=== PATIENT | female | born 1990 | race Two or more races ===

== ENCOUNTER 2022-05-05 11:43 | Observation (INO) | payer OTHER ==
[~2022-05-05] VITALS: Ht 162.6 cm; Wt 91.6 kg
[2022-05-05] MEDS ORDERED: BETAMETHASONE ACET (30mg/5ml) 5ml Vial 6mg/ml IM ONE (12:45)
[2022-05-05 13:16] LABS: Urine Bacteria NONE SEEN /hpf (None Seen); Urine Blood Negative /uL (Negative); Urine Mucus FEW (None Seen); Urine Specific Gravity 1.017 (1.001-1.035); Urine WBC 6 /hpf (0 - 5)
[2022-05-05 13:34] LABS: Basophils # (auto) 0 10 ^3/uL (0-0.2); Basophils % (auto) 0.2 % (0.0-2.0); Eosinophils # (auto) 0.1 10 ^3/uL (0-0.8); Eosinophils % (auto) 0.7 % (0.0-7.0); Hematocrit 40.6 % (36.0-46.0); Hemoglobin 13.4 g/dL (12.2-16.2); Lymphocytes % (auto) 11.1 % (10.0-50.0); Mean Corpuscular Hemoglobin 28.1 pg (28.0-32.0); Mean Corpuscular Hgb Conc. 32.9 g/dL (32.0-36.0); Mean Corpuscular Volume 85.4 fL (80.0-100.0); Monocytes # (auto) 0.4 10 ^3/uL (0-1.3); Monocytes % (auto) 4.5 % (0.0-12.0); Neutrophils # (auto) 7.3 10 ^3/uL (1.6-8.6); Neutrophils % (auto) 83.5 % (37.0-80.0); Red Blood Cells 4.75 10^6/uL (4.0-5.20); Red Cell Distribution Width 13.6 % (11.8-14.3); White Blood Cell 8.8 10^3/uL (4.4-10.8)
[2022-05-05 13:57] LABS: INR 0.91 (0.9-1.15); Partial Thromboplastin Time 26.8 sec (24.6-33.4)
[2022-05-05 14:13] LABS: Albumin 2.8 g/dL (3.4-5.0); BUN/Creatinine Ratio 11.8; Calcium 8.7 mg/dL (8.5-10.1); Potassium 3.6 mmol/L (3.5-5.1); Uric Acid 4.7 mg/dL (2.6-6.0)
[2022-05-05 14:30] LABS: Bilirubin, Total 0.3 mg/dL (0.2-1.0); Total Protein 6.3 g/dL (6.4-8.2)
[2022-05-05] MEDS ORDERED: PREN-96 PO (15:33)
== END 2022-05-05 15:52 | disposition home or self-care (01) ==
LOC: LDRP 11:43 → UNDOADMOB 11:43 → LDRP 12:12
PROVIDERS: ADMIT Obstetrics & Gynecology; ATTEND Obstetrics & Gynecology
DX: O13.3 Gestational [pregnancy-induced] hypertension without significant proteinuria, third trimester (principal); Z20.822 Contact with and (suspected) exposure to COVID-19; O36.8930 Maternal care for other specified fetal problems, third trimester, not applicable or unspecified; Z3A.32 32 weeks gestation of pregnancy; Z79.899 Other long term (current) drug therapy
CPT/HCPCS: 36415; 59025; 76818; 80053; 81001; 81002; 84550; 85025; 85610; 85730; 87426; 94760; 96372; G0378; J0702

== ENCOUNTER 2022-05-06 17:15 | Observation (INO) | payer OTHER ==
[~2022-05-06] VITALS: Ht 162.6 cm; Wt 91.6 kg
[~2022-05-06 17:15] MED LIST: PREN-96 PO
[2022-05-06] MEDS ORDERED: BETAMETHASONE ACET (30mg/5ml) 5ml Vial 6mg/ml IM ONE (19:00)
[2022-05-06 19:02] LABS: Protein, Urine 10.4 mg/dL (0.0-11.9)
== END 2022-05-06 19:42 | disposition home or self-care (01) ==
LOC: LDRP 17:15
PROVIDERS: ADMIT Obstetrics & Gynecology; ATTEND Obstetrics & Gynecology
DX: O13.3 Gestational [pregnancy-induced] hypertension without significant proteinuria, third trimester (principal); O99.513 Diseases of the respiratory system complicating pregnancy, third trimester; J02.9 Acute pharyngitis, unspecified; O26.893 Other specified pregnancy related conditions, third trimester; M79.10 Myalgia, unspecified site; Z3A.32 32 weeks gestation of pregnancy
CPT/HCPCS: 59025; 81002; 84156; 94760; 96372; G0378; J0702

== ENCOUNTER 2022-05-09 08:25 | Observation (INO) | payer OTHER | END 2022-05-09 11:13 | disposition home or self-care (01) | LOC: LDRP 08:25 | PROVIDERS: ADMIT Obstetrics & Gynecology; ATTEND Obstetrics & Gynecology | DX: O13.3 Gestational [pregnancy-induced] hypertension without significant proteinuria, third trimester (principal); Z3A.33 33 weeks gestation of pregnancy; Z87.891 Personal history of nicotine dependence | CPT/HCPCS: 59025; 81002; 82948; 94760; G0378 ==

== ENCOUNTER 2022-05-12 12:37 | Observation (INO) | payer OTHER | END 2022-05-12 14:40 | disposition home or self-care (01) | LOC: LDRP 12:37 → UNDOADMOB 12:37 → LDRP 12:54 | PROVIDERS: ADMIT Obstetrics & Gynecology; ATTEND Obstetrics & Gynecology | DX: O24.419 Gestational diabetes mellitus in pregnancy, unspecified control (principal); Z3A.33 33 weeks gestation of pregnancy | CPT/HCPCS: 59025; 76818; 81002; 82948; 82962; 94760; G0378 ==

== ENCOUNTER 2022-05-18 08:05 | Observation (INO) | payer OTHER | END 2022-05-18 09:43 | disposition home or self-care (01) | LOC: UNDOADMOB 08:34 → LDRP 08:34 → UNDODISOB 09:43 | PROVIDERS: ADMIT Obstetrics & Gynecology Obstetrics; ATTEND Obstetrics & Gynecology Obstetrics | DX: O24.419 Gestational diabetes mellitus in pregnancy, unspecified control (principal); O13.3 Gestational [pregnancy-induced] hypertension without significant proteinuria, third trimester; O60.03 Preterm labor without delivery, third trimester; Z3A.34 34 weeks gestation of pregnancy | CPT/HCPCS: 59025; 81002; 82948; 82962; 94760; G0378 ==

== ENCOUNTER 2022-05-19 11:09 | Observation (INO) | payer OTHER | END 2022-05-19 12:25 | disposition home or self-care (01) | LOC: LDRP 11:09 → UNDOADMOB 11:09 → LDRP 12:04 | PROVIDERS: ADMIT Obstetrics & Gynecology; ATTEND Obstetrics & Gynecology | DX: O13.3 Gestational [pregnancy-induced] hypertension without significant proteinuria, third trimester (principal); Z20.822 Contact with and (suspected) exposure to COVID-19; O24.419 Gestational diabetes mellitus in pregnancy, unspecified control; Z3A.34 34 weeks gestation of pregnancy; Z91.040 Latex allergy status; Z87.891 Personal history of nicotine dependence | CPT/HCPCS: 59025; 82948; 94760; G0378 ==

== ENCOUNTER 2022-05-22 08:29 | Observation (INO) | payer OTHER ==
[~2022-05-22] VITALS: Ht 162.6 cm; Wt 92.5 kg
[2022-05-22] MEDS ORDERED: FER325T PO (09:27)
[2022-05-22] MEDS ORDERED: LABE100T4 PO (10:37)
== END 2022-05-22 10:45 | disposition home or self-care (01) ==
LOC: UNDOADMOB 08:29 → LDRP 08:29
PROVIDERS: ADMIT Obstetrics & Gynecology; ATTEND Obstetrics & Gynecology
DX: O13.3 Gestational [pregnancy-induced] hypertension without significant proteinuria, third trimester (principal); Z3A.35 35 weeks gestation of pregnancy; Z91.040 Latex allergy status; Z87.891 Personal history of nicotine dependence
CPT/HCPCS: 59025; 76818; 81002; 82948; 82962; 94760; G0378

== ENCOUNTER 2022-05-24 11:43 | Observation (INO) | payer OTHER ==
[~2022-05-24 11:43] MED LIST changes: +FER325T PO; +LABE100T4 PO
== END 2022-05-24 14:00 | disposition home or self-care (01) ==
LOC: LDRP 11:43
PROVIDERS: ADMIT Obstetrics & Gynecology; ATTEND Obstetrics & Gynecology
DX: O14.93 Unspecified pre-eclampsia, third trimester (principal); O13.3 Gestational [pregnancy-induced] hypertension without significant proteinuria, third trimester; O24.419 Gestational diabetes mellitus in pregnancy, unspecified control; Z3A.35 35 weeks gestation of pregnancy; Z91.040 Latex allergy status; Z87.891 Personal history of nicotine dependence
CPT/HCPCS: 59025; 76818; 81002; 82948; 82962; 94760; G0378

== ENCOUNTER 2022-05-27 13:27 | Observation (INO) | payer OTHER | END 2022-05-27 14:25 | disposition home or self-care (01) | LOC: UNDOADMOB 13:27 → LDRP 13:27 | PROVIDERS: ADMIT Obstetrics & Gynecology; ATTEND Obstetrics & Gynecology | DX: O13.3 Gestational [pregnancy-induced] hypertension without significant proteinuria, third trimester (principal); O24.419 Gestational diabetes mellitus in pregnancy, unspecified control; Z3A.35 35 weeks gestation of pregnancy | CPT/HCPCS: 59025; 76818; 81002; 82948; 82962; 94760; G0378 ==

== ENCOUNTER 2022-06-01 08:25 | Observation (INO) | payer OTHER | END 2022-06-01 12:16 | disposition home or self-care (01) | LOC: LDRP 09:23 → UNDOADMOB 09:25 → UNDODISOB 12:16 | PROVIDERS: ADMIT Obstetrics & Gynecology Obstetrics; ATTEND Obstetrics & Gynecology Obstetrics | DX: O24.419 Gestational diabetes mellitus in pregnancy, unspecified control (principal); O13.3 Gestational [pregnancy-induced] hypertension without significant proteinuria, third trimester; Z3A.36 36 weeks gestation of pregnancy | CPT/HCPCS: 59025; 76818; 81002; 82948; 82962; G0378 ==

== ENCOUNTER 2022-06-04 11:17 | Observation (INO) | payer OTHER ==
[2022-06-04] MEDS ORDERED: NITR-87 PO (11:50)
== END 2022-06-04 12:43 | disposition home or self-care (01) ==
LOC: UNDOADMOB 11:17 → LDRP 11:17
PROVIDERS: ADMIT Obstetrics & Gynecology; ATTEND Obstetrics & Gynecology
DX: O24.419 Gestational diabetes mellitus in pregnancy, unspecified control (principal); O13.3 Gestational [pregnancy-induced] hypertension without significant proteinuria, third trimester; Z3A.37 37 weeks gestation of pregnancy
CPT/HCPCS: 59025; 76818; 81002; 82948; 82962; G0378

== ENCOUNTER 2022-06-09 09:23 | Observation (INO) | payer OTHER ==
[~2022-06-09 09:23] MED LIST changes: +NITR-87 PO
== END 2022-06-09 11:10 | disposition home or self-care (01) ==
LOC: UNDOADMOB 09:23 → LDRP 09:23
PROVIDERS: ADMIT Obstetrics & Gynecology; ATTEND Obstetrics & Gynecology
DX: O13.3 Gestational [pregnancy-induced] hypertension without significant proteinuria, third trimester (principal); O24.419 Gestational diabetes mellitus in pregnancy, unspecified control; O62.9 Abnormality of forces of labor, unspecified; O26.893 Other specified pregnancy related conditions, third trimester; R10.2 Pelvic and perineal pain; Z3A.37 37 weeks gestation of pregnancy
CPT/HCPCS: 59025; 76818; 81002; 82948; 82962; 94760; G0378

== ENCOUNTER 2022-06-11 11:09 | Observation (INO) | payer OTHER ==
[2022-06-11 12:43] LABS: Basophils # (auto) 0 10 ^3/uL (0-0.2); Basophils % (auto) 0.5 % (0.0-2.0); Eosinophils # (auto) 0.2 10 ^3/uL (0-0.8); Eosinophils % (auto) 2.1 % (0.0-7.0); Hematocrit 39.6 % (36.0-46.0); Hemoglobin 13.4 g/dL (12.2-16.2); Lymphocytes # (auto) 1.1 10 ^3/uL (0.4-5.4); Mean Corpuscular Hemoglobin 28.6 pg (28.0-32.0); Mean Corpuscular Volume 84.1 fL (80.0-100.0); Monocytes # (auto) 0.5 10 ^3/uL (0-1.3); Neutrophils # (auto) 7.8 10 ^3/uL (1.6-8.6); Neutrophils % (auto) 81.4 % (37.0-80.0); Red Blood Cells 4.71 10^6/uL (4.0-5.20); Red Cell Distribution Width 14.7 % (11.8-14.3); White Blood Cell 9.6 10^3/uL (4.4-10.8)
[2022-06-11 13:08] LABS: Calcium 8.5 mg/dL (8.5-10.1)
[2022-06-11 13:12] LABS: BUN/Creatinine Ratio 14.5; Bilirubin, Total 0.4 mg/dL (0.2-1.0); Uric Acid 5.7 mg/dL (2.6-6.0)
[2022-06-11 13:39] LABS: Urine Bacteria NONE SEEN /hpf (None Seen); Urine Blood Negative /uL (Negative); Urine Specific Gravity 1.012 (1.001-1.035); Urine WBC 2 /hpf (0 - 5)
[2022-06-11 13:45] LABS: Protein, Urine 12.4 mg/dL (0.0-11.9)
== END 2022-06-11 14:40 | disposition home or self-care (01) ==
LOC: LDRP 11:09 → UNDOADMOB 11:09 → LDRP 11:58 → UNDODISOB 14:40
PROVIDERS: ADMIT Obstetrics & Gynecology; ATTEND Obstetrics & Gynecology
DX: O13.3 Gestational [pregnancy-induced] hypertension without significant proteinuria, third trimester (principal); O24.419 Gestational diabetes mellitus in pregnancy, unspecified control; Z3A.38 38 weeks gestation of pregnancy; Z87.891 Personal history of nicotine dependence
CPT/HCPCS: 36415; 59025; 76818; 80053; 81001; 81002; 82570; 82948; 82962; 84156; 84550; 85025; 94760; G0378

== ENCOUNTER 2022-06-15 02:14 | Inpatient (IN) | payer OTHER ==
[~2022-06-15] VITALS: Ht 165.1 cm; Wt 72.6 kg
[2022-06-15] MEDS ORDERED: PROMETHAZINE HCL 25 MG/ML 1ML IM ONE (02:45)
[2022-06-15] MEDS ORDERED: BUTORPHANOL TARTRATE 2 MG/1 ML VIAL IV PRN ×2 (02:45)
[2022-06-15] MEDS ORDERED: DERMOPLAST 60ML BOTTLE TOP PRN (02:45)
[2022-06-15] MEDS ORDERED: WITCH HAZEL-GLYCERIN PAD TOP PRN (02:45)
[2022-06-15] MEDS ORDERED: LACTATED RINGER'S 1,000 ML IV SCH (02:45)
[2022-06-15] MEDS ORDERED: PROMETHAZINE HCL 25 MG/ML 1ML IV PRN (02:45)
[2022-06-15] MEDS ORDERED: LIDOCAINE 2%HCL (LOCAL ANESTH.) INJ 20ML MDV IJ PRN (02:45)
[2022-06-15] MEDS ORDERED: PHISODERM TOP SOLN 240ML BTL TOP PRN (02:45)
[2022-06-15] MEDS ORDERED: LACT. RINGERS/OXYTOCIN 20UNITS 500 ML IV ONE ×2 (03:00→03:30)
[2022-06-15] MEDS ORDERED: LACT. RINGERS/OXYTOCIN 20UNITS 1,000 ML IV SCH (03:00)
[2022-06-15] MEDS ORDERED: TERBUTALINE SULFATE 1 MG/ML 1ML VIAL SC PRN (03:00)
[2022-06-15 03:12] LABS: Alcohol, Urine < 3.0 mg/dL (0-10); Amphetamine Screen, Urine NEGATIVE (NEGATIVE); Barbiturate Scree,Urine NEGATIVE (NEGATIVE); Benzodiazephine Screen, Urine NEGATIVE (NEGATIVE); Cannabinoid Screen, Urine NEGATIVE (NEGATIVE); Cocaine Screen, Urine NEGATIVE (NEGATIVE); Opiate Scree,Urine NEGATIVE (NEGATIVE); Phencyclidine Screen, Urine NEGATIVE (NEGATIVE)
[2022-06-15 03:16] LABS: Protein, Urine 8.2 mg/dL (0.0-11.9)
[2022-06-15 03:19] LABS: INR 0.86 (0.9-1.15); Partial Thromboplastin Time 25.6 sec (24.6-33.4)
[2022-06-15 03:21] LABS: Albumin 2.9 g/dL (3.4-5.0); Calcium 9.6 mg/dL (8.5-10.1)
[2022-06-15 03:24] LABS: Bilirubin, Total 0.3 mg/dL (0.2-1.0)
[2022-06-15 03:25] LABS: Urine Bacteria NONE SEEN /hpf (None Seen); Urine Blood Negative /uL (Negative); Urine Specific Gravity 1.007 (1.001-1.035); Urine WBC 2 /hpf (0 - 5)
[2022-06-15 03:30] LABS: Basophils # (auto) 0 10 ^3/uL (0-0.2); Basophils % (auto) 0.4 % (0.0-2.0); Eosinophils # (auto) 0.2 10 ^3/uL (0-0.8); Eosinophils % (auto) 2.6 % (0.0-7.0); Hematocrit 39.9 % (36.0-46.0); Hemoglobin 13.3 g/dL (12.2-16.2); Lymphocytes # (auto) 1.6 10 ^3/uL (0.4-5.4); Lymphocytes % (auto) 18.8 % (10.0-50.0); Mean Corpuscular Hemoglobin 28.6 pg (28.0-32.0); Mean Corpuscular Hgb Conc. 33.3 g/dL (32.0-36.0); Mean Corpuscular Volume 85.8 fL (80.0-100.0); Monocytes # (auto) 0.5 10 ^3/uL (0-1.3); Monocytes % (auto) 5.7 % (0.0-12.0); Neutrophils % (auto) 72.5 % (37.0-80.0); Red Blood Cells 4.65 10^6/uL (4.0-5.20); Red Cell Distribution Width 15.3 % (11.8-14.3); White Blood Cell 8.3 10^3/uL (4.4-10.8)
[2022-06-15 03:51] LABS: Uric Acid 5.1 mg/dL (2.6-6.0)
[2022-06-15] MEDS: hydrALAZINE HCL 20 MG/ML VL IV PRN ×3 (04:08→06:54)
[2022-06-15] MEDS ORDERED: ACCU-CHEK COMFORT CURVE STRIP VI SCH (06:00)
[2022-06-15] MEDS ORDERED: fentaNYL CITRATE 100 MCG/2 ML VL ONE (07:09)
[2022-06-15] MEDS ORDERED: MORPHINE SULF PF 5 MG/10 ML VIAL ONE (07:09)
[2022-06-15] MEDS ORDERED: SODIUM CHLORIDE 0.9% 1,000 ML IV SCH (07:15)
[2022-06-15] MEDS ORDERED: MAGNESIUM SULFATE 1GM/100ML 100 ML IV SCH (07:15)
[2022-06-15] MEDS ORDERED: NALBUPHINE HCL 10 MG/1ml INJECTION IV ONE (08:45)
[2022-06-15] MEDS ORDERED: HYDROmorphone HCL 2 MG/ML VL/or syr IV PRN (08:45)
[2022-06-15] MEDS ORDERED: diphenhdrAMINE HCL 50 MG/1 ML VL IV PRN (08:45)
[2022-06-15] MEDS ORDERED: NALOXONE HCL 0.4 MG/ML VIAL IV PRN (08:45)
[2022-06-15] MEDS ORDERED: ONDANSETRON HCL 4 MG/2 ML VIAL IV PRN (08:45)
[2022-06-15] MEDS ORDERED: miSOPROStol 100 mcg TAB SL PRN (09:15)
[2022-06-15] MEDS: LABETALOL HCL 200 MG TAB PO SCH ×2 (10:12→22:19)
[2022-06-15 12:11] VITALS: BP 142/85
[2022-06-15] MEDS ORDERED: ONDANSETRON ODT 4 MG TAB PO PRN (13:00)
[2022-06-15] MEDS ORDERED: ACETAMINOPHEN 325 MG TAB PO PRN (13:00)
[2022-06-15 14:30] VITALS: BP 137/71
[2022-06-15 17:30] VITALS: BP 122/71
[2022-06-15] MEDS: MAGNESIUM SULFATE 1GM/100ML 100 ML IV SCH ×2 (17:49→17:50)
[2022-06-15 19:00] VITALS: BP 133/88
[2022-06-15] MEDS ORDERED: DOCUSATE SOD 100 MG CAP PO SCH (22:00)
[2022-06-15] MEDS: IBUPROFEN 600 MG TAB PO PRN (22:19)
[2022-06-15 23:00] VITALS: BP 130/79
[2022-06-16 03:00] VITALS: BP 133/77
[2022-06-16 06:47] VITALS: BP 119/79
[2022-06-16] MEDS: IBUPROFEN 600 MG TAB PO PRN ×2 (06:54→15:42)
[2022-06-16] MEDS: LABETALOL HCL 200 MG TAB PO SCH (10:03)
[2022-06-16 10:57] VITALS: BP 132/72
[2022-06-16 14:46] VITALS: BP 127/69
[2022-06-17 05:06] LABS: RPR Non Reactive (Non Reactive)
== END 2022-06-16 16:16 | disposition home or self-care (01) | DRG 807 ==
LOC: LDRP 02:14 → OBSVTOIN 02:30 → LDRP 04:51
PROVIDERS: ADMIT Obstetrics & Gynecology; ATTEND Obstetrics & Gynecology
PROC: 0KQM0ZZ Repair Perineum Muscle, Open Approach (ICD-10-PCS; principal; 2022-06-15)
PROC: 10D07Z6 Extraction of Products of Conception, Vacuum, Via Natural or Artificial Opening (ICD-10-PCS; 2022-06-15)
PROC: 0W8NXZZ Division of Female Perineum, External Approach (ICD-10-PCS; 2022-06-15)
DX: O13.4 Gestational [pregnancy-induced] hypertension without significant proteinuria, complicating childbirth (principal); Z37.0 Single live birth; Z20.822 Contact with and (suspected) exposure to COVID-19; O70.1 Second degree perineal laceration during delivery; Z3A.38 38 weeks gestation of pregnancy
CPT/HCPCS: 36415; 59025; 59409; 62282; 80053; 80307; 81001; 81002; 82570; 82947; 84112; 84156; 84550; 85025; 85610; 85730; 86592; 86850; 86900; 86901; 87426; 94760; 96360; 96361; 96365; 96366; 96372; 96374; 96375; G0378; J2590

== ENCOUNTER 2025-03-23 06:54 | Observation (INO) | payer OTHER ==
[~2025-03-23 06:54] MED LIST changes: -LABE100T4 PO; +METF-370 PO
--- NOTE | 2025-03-23 14:00 | DVH ---
BIOPHYSICAL PROFILE HISTORY: GDMA2 TECHNIQUE: Multiple transabdominal real-time grayscale sonographic images through the gravid uterus of the fetus with duplex Doppler color flow and M-mode spectral analysis FINDINGS: BIOPHYSICAL PROFILE: breathing score: 2 movement score: 2 tone score: 2 Quantitative BANDAR score: 2 (BANDAR: 16.7 Cm.) Total score: 8/8 The cervix not visible Single live fetus in cephalic presentation. heart rate 161 beats per minute. Posterior Grade 2 placenta without previa or abruption Single live fetus at 33 weeks 0 days Biophysical profile score 8/8 corresponding to an JAZMÍN of 05/11/2025 IMPRESSION: 1. Biophysical profile score: 8/8
--- NOTE | 2025-03-23 21:08 | DVHDS2 ---
Physician Discharge Progress N Final Diagnosis: GDMA2 Secondary Diagnosis: Encounter for surveillance Operations or Procedures: Operations or Procedures PATIENT: BREA PACE ACCT: [id number] UNIT: [id number] : 1990 LOC: [facility] ROOM / BED: TRIAGE2 / A AGE / SEX: 34 / F ADM STATUS: ADM IN SERVICE 1321 ORDERING PHYSICIAN: SUSAN COATS DO PROCEDURE(s): BPP - BIOPHYSICAL PROFILE REASON: GDMA2 ORDER NUMBER(s): [id number], ACCESSION NUMBER(s): [id number] BIOPHYSICAL PROFILE HISTORY: GDMA2 TECHNIQUE: Multiple transabdominal real-time grayscale sonographic images through the gravid uterus of the fetus with duplex Doppler color flow and M-mode spectral analysis FINDINGS: BIOPHYSICAL PROFILE: breathing score: 2 movement score: 2 tone score: 2 Quantitative BANDAR score: 2 (BANDAR: 16.7 Cm.) Total score: 8/8 The cervix not visible Single live fetus in cephalic presentation. heart rate 161 beats per minute. Posterior Grade 2 placenta without previa or abruption Single live fetus at 33 weeks 0 days Biophysical profile score 8/8 corresponding to an JAZMÍN of 05/11/2025 IMPRESSION: 1. Biophysical profile score: 8/8 ATED BY: ROCIO AZEVEDO Jr., DO DICTATED DATE/TIME: 03/23/25 1358 Commentary: Commentary NST/KATE reviewed Condition on Discharge: Stable Disposition: Home Discharge Instructions: Diet: Consistent carbohydrate Activity: No Restrictions, As Tolerated Medications: NA Follow Up Care: Discharge Statement: "Patient was advised to return to the ER or call 911 if any headaches, dizziness, shortness of breath, chest pain, abdominal pain, bleeding, fevers, or worsening of medical condition. Patient was counseled about treatment plan, medications, possible side effects, patientverbalized understanding. All questions were answered to the best of my ability. This discharge took greater then 30 minutes in planning, reviewing documentation, counseling the patient, and discussing with other team members." Visit Coding OBGYN Date of Service: Mar 23, 2025 Billing Provider: GARIBALDI,SUSAN G DO BRAND PLANNER Common Visit Codes: 90597-APZ/OBS SAME DATE (HIGH) BRAND PLANNER Procedure Codes: 82054-53- NON-STRESS TEST SUSAN COATS DO Mar 23, 2025 21:08
== END 2025-03-23 14:26 | disposition home or self-care (01) ==
LOC: LDRP 13:10 → UNDOADMOB 13:10 → LDRP 13:22
PROVIDERS: ADMIT Obstetrics & Gynecology; ATTEND Obstetrics & Gynecology
DX: O24.419 Gestational diabetes mellitus in pregnancy, unspecified control (principal); Z3A.32 32 weeks gestation of pregnancy; Z98.890 Other specified postprocedural states
CPT/HCPCS: 76818; 81002; 82948; 82962; 94760; G0378; 59025; 76819

== ENCOUNTER 2025-03-27 13:50 | Observation (INO) | payer OTHER ==
[~2025-03-27] VITALS: Ht 157.5 cm; Wt 90.7 kg
[2025-03-27 15:37] VITALS: TEMP 98.2
[2025-03-27] MEDS: ACETAMINOPHEN 325 MG TAB PO ONE (15:37)
--- NOTE | 2025-03-27 15:37 | DVH ---
CLINICAL HISTORY: Gestational diabetes. COMPARISON: US BIOPHYSICAL PROFILE on DOS: 03/23/25, US BIOPHYSICAL PROFILE on DOS: 03/21/25, BIOPHYSI GREGG PROFILE on DOS: 06/11/22 TECHNIQUE: biophysical profile was performed. Transabdominal sonographic images of the fetus we re obtained. FINDINGS: The fetus is in cephalic position. heart rate measures 156 BPM. Amniotic fluid index measures 14.2 cm. The placenta is posterior in position without visualized evidence for previa or abr uption. BPP profile is an overall score of 8/8, with 2/2 points for breathing, with at least one episode of breathing over a 30 second duration during a 30 minute observation, 2/2 points for m ovements, with 3 or more discrete body or limb movements, 2/2 points for tone, with one or more episodes of extremity extension with return to flexion, or opening and closing of hand, and 2/ 2 points for amniotic fluid, with at least 1 pocket of amniotic fluid that measures 2 cm in 2 perpend icular planes. IMPRESSION: BPP score of 8/8.
--- NOTE | 2025-03-27 17:52 | DVHDS2 ---
Physician Discharge Progress N Final Diagnosis: testing for GDM, A2 Operations or Procedures: Operations or Procedures 34yo IUP@33.4wks, pt reports a headache and thinks she is getting sick since her family is sick VSS NST reactive per RN Tylenol 1000mg PO given, pt reports headache is better after FKC/PTL/preE Precautions reviewed Other Interventions Other Interventions [address] [address] Ph: [phone] DIAGNOSTIC IMAGING Diagnostic Imaging Report : [id number] Signed PATIENT: BREA PACE ACCT: [id number] UNIT: [id number] : 1990 LOC: [facility] ROOM / BED: TRIAGE2 / A AGE / SEX: 34 / F ADM STATUS: ADM IN SERVICE 1404 ORDERING PHYSICIAN: PIA FRANCOIS CNM PROCEDURE(s): BPP - BIOPHYSICAL PROFILE REASON: NST/BPP GDMA2 ORDER NUMBER(s): [id number], ACCESSION NUMBER(s): [id number] CLINICAL HISTORY: Gestational diabetes. COMPARISON: US BIOPHYSICAL PROFILE on DOS: 03/23/25, US BIOPHYSICAL PROFILE on DOS: 03/21/25, BIOPHYSICAL PROFILE on DOS: 06/11/22 TECHNIQUE: biophysical profile was performed. Transabdominal sonographic images of the fetus were obtained. FINDINGS: The fetus is in cephalic position. heart rate measures 156 BPM. Amniotic fluid index measures 14.2 cm. The placenta is posterior in position without visualized evidence for previa or abruption. BPP profile is an overall score of 8/8, with 2/2 points for breathing, with at least one episode of breathing over a 30 second duration during a 30 minute observation, 2/2 points for movements, with 3 or more discrete body or limb movements, 2/2 points for tone, with one or more episodes of extremity extension with return to flexion, or opening and closing of hand, and 2/2 points for amniotic fluid, with at least 1 pocket of amniotic fluid that measures 2 cm in 2 perpendicular planes. IMPRESSION: BPP score of 8/8. ATED BY: LESIA NEGRON DO DICTATED DATE/TIME: 03/27/251533 SIGNED BY: LESIA NEGRON DO SIGNED DATE/TIME: 03/27/251533 CC: Condition on Discharge: Stable Disposition: Home Discharge Instructions: Diet: Consistent carbohydrate Activity: No Restrictions, As Tolerated Follow Up/Referral: Return to [facility] on Wednesday at 11:00 am for NST/BPP Medications: see med list Follow Up Care: Specialist: f/u in 3 days Discharge Statement: "Patient was advised to return to the ER or call 911 if any headaches, dizziness, shortness of breath, chest pain, abdominal pain, bleeding, fevers, or worsening of medical condition. Patient was counseled about treatment plan, medications, possible side effects, patientverbalized understanding. All questions were answered to the best of my ability. This discharge took greater then 30 minutes in planning, reviewing documentation, counseling the patient, and discussing with other team members." Visit Coding OBGYN Date of Service: Mar 27, 2025 Billing Provider: PIA FRANCOIS CNM ROLL FORMER Common Visit Codes: 08748-[id number] OBS CARE (HIGH) ROLL FORMER Procedure Codes: 71963-00- NON-STRESS TEST PIA FRANCOIS CNM Mar 27, 2025 17:52
== END 2025-03-27 16:20 | disposition home or self-care (01) ==
LOC: LDRP 13:50 → UNDOADMOB 13:50 → LDRP 14:06
PROVIDERS: ADMIT Obstetrics & Gynecology; ATTEND Obstetrics & Gynecology
DX: O24.419 Gestational diabetes mellitus in pregnancy, unspecified control (principal); Z3A.33 33 weeks gestation of pregnancy; Z98.890 Other specified postprocedural states
CPT/HCPCS: 76818; 81002; 82948; 82962; 94760; G0378; 59025; 76819

== ENCOUNTER 2025-03-30 10:01 | Observation (INO) | payer OTHER ==
--- NOTE | 2025-03-30 10:41 | DVH ---
BIOPHYSICAL PROFILE HISTORY: GMDA2 Comparison Study: US BIOPHYSICAL PROFILE on DOS: 03/27/25, US BIOPHYSICAL PROFILE on DOS: 03/23/25, U S BIOPHYSICAL PROFILE on DOS: 03/21/25, BIOPHYSICAL PROFILE on DOS: 06/11/22, BPP on DOS: 06/11/22 TECHNIQUE: Multiple real-time grayscale sonographic images through the gravid uterus of the fetus wi th duplex Doppler color flow and M-mode spectral analysis FINDINGS: BIOPHYSICAL PROFILE: breathing score: 2 movement score: 2 tone score: 2 Quantitative BANDAR score: 2 (BANDAR: 9.9 Cm.) Total score: 8 The cervix is not visualized Single live fetus in cephalic presentation. heart rate 168 beats per minute. Posterior placenta without previa or abruption IMPRESSION: Biophysical profile score: 8
[2025-03-30 11:23] LABS: Hematocrit 40.6 % (36.0-46.0); Hemoglobin 13.5 g/dL (12.2-16.2); Mean Corpuscular Hemoglobin 28.1 pg (28.0-32.0); Mean Corpuscular Volume 84.5 fL (80.0-100.0); Nucleated Red Blood Cells % 0.0 %
[2025-03-30 11:38] LABS: INR 0.9 (0.9-1.15); Partial Thromboplastin Time 27.1 SEC (24.5-34.5); Prothrombin Time 9.6 sec (9.3-11.8)
[2025-03-30 11:40] LABS: Albumin 3.8 g/dL (3.2-4.8); Alkaline Phosphatase 112 U/L (46-116); Anion Gap 10 (5-15); BUN/Creatinine Ratio 15.2 (10.0-20.0); Bilirubin, Total 0.5 mg/dL (0.2-1.0); Calcium 9.1 mg/dL (8.7-10.4); Carbon Dioxide 22 mmol/L (20-31); Chloride 106 mmol/L (98-107); Glucose 95 mg/dL (74-106); Potassium 4.1 mmol/L (3.5-5.1); Sodium 138 mmol/L (136-145); Total Protein 6.3 g/dL (5.7-8.2); Uric Acid 5.3 mg/dL (3.1-7.8)
[2025-03-30 11:41] LABS: Alanine Aminotransferase < 9 U/L (7-40); Blood Urea Nitrogen 7 mg/dL (9-23)
--- NOTE | 2025-03-30 11:41 | DVHDS2 ---
Physician Discharge Progress N Final Diagnosis: gdm,r/o pih 34 wks Operations or Procedures: Operations or Procedures nst reactive reviwed,sono Condition on Discharge: Good Disposition: Home Discharge Instructions: Diet: Consistent carbohydrate Activity: No Restrictions, As Tolerated Medications: na Follow Up Care: Specialist: 1d Discharge Statement: "Patient was advised to return to the ER or call 911 if any headaches, dizziness, shortness of breath, chest pain, abdominal pain, bleeding, fevers, or worsening of medical condition. Patient was counseled about treatment plan, medications, possible side effects, patientverbalized understanding. All questions were answered to the best of my ability. This discharge took greater then 30 minutes in planning, reviewing documentation, counseling the patient, and discussing with other team members." Visit Coding OBGYN Date of Service: Mar 30, 2025 Billing Provider: EUGENIA POWELL DO WORKERS COMPENSATION CLAIMS ADJUSTER Common Visit Codes: [id number] OBS CARE (HIGH) WORKERS COMPENSATION CLAIMS ADJUSTER Procedure Codes: 79849-04- NON-STRESS TEST EUGENIA POWELL DO Mar 30, 2025 11:41
[2025-03-30 11:48] LABS: Urine Protein, UAD Negative (Negative)
[2025-03-30 11:56] LABS: Protein, Urine < 6.0 mg/dL (1-14)
== END 2025-03-30 12:17 | disposition home or self-care (01) ==
LOC: UNDOADMOB 10:01 → LDRP 10:01
PROVIDERS: ADMIT Obstetrics & Gynecology; ATTEND Obstetrics & Gynecology
DX: O24.419 Gestational diabetes mellitus in pregnancy, unspecified control (principal); Z3A.34 34 weeks gestation of pregnancy; Z98.890 Other specified postprocedural states; Z86.2 Personal history of diseases of the blood and blood-forming organs and certain disorders involving the immune mechanism
CPT/HCPCS: 36415; 76818; 80053; 81001; 81002; 82570; 82948; 84156; 84550; 85025; 85610; 85730; 94760; G0378; 59025; 76819

== ENCOUNTER 2025-04-02 12:00 | Observation (INO) | payer OTHER ==
[~2025-04-02] VITALS: Ht 162.6 cm; Wt 87.5 kg
[2025-04-02 12:53] LABS: Protein, Urine 11.3 mg/dL (1-14); Urine Protein, UAD Negative (Negative)
[2025-04-02 13:38] LABS: Protein, Urine 7.7 mg/dL (1-14)
--- NOTE | 2025-04-02 13:39 | DVH ---
BIOPHYSICAL PROFILE HISTORY: GDMA2, r/o PIH TECHNIQUE: Multiple transabdominal real-time grayscale sonographic images through the gravid uterus of the fetus with duplex Doppler color flow and M-mode spectral analysis FINDINGS: BIOPHYSICAL PROFILE: breathing score: 2 movement score: 2 tone score: 2 Quantitative BANDAR score: 2 (BANDAR: 17.1 Cm.) Total score: 8 The cervix was not seen Single live fetus in cephalic presentation. heart rate 148 beats per minute. Grade II posterior placenta without previa or abruption IMPRESSION: Biophysical profile score: 8/8
[2025-04-02 13:54] LABS: 24 Hr. Total Protein, Urine 138.6 mg/24 Hr (<149.1); Urine Total Volume, 24 Hours 1800.0 mL
--- NOTE | 2025-04-02 15:23 | DVHDS2 ---
Discharge Summary Date of Admission Apr 02, 2025 at 12:17 Date of Discharge: Apr 02, 2025 Admitting Diagnosis Patient 34 weeks PH 24 hour urine returned NST BPP all performed and reassuring. Wounds: None Labs/Diagnostic Data: Laboratory Results Test 04/02/25 12:36 04/02/25 12:32 04/02/25 10:00 POC Glucose 98 mg/dl (70-106) Urine Color Light-yellow (Yellow) Urine Clarity Hazy (Clear) Urine pH 6.5 (5.0-9.0) Urine Specific [place] 1.015 (1.001-1.035) Urine Protein Negative (Negative) Urine Ketones Negative (Negative) Urine Blood Negative /uL (Negative) Urine Nitrite Negative (Negative) Urine Bilirubin Negative (Negative) Urine Urobilinogen Normal mg/dL (Negative) Urine Leukocyte Esterase 3+ /uL (Negative) Urine RBC 1 /hpf (0 - 4) Urine Microscopic WBC 7 /HPF (0-5) Urine Squamous Epithelial Cells Few /hpf (<5) Urine Bacteria Few /hpf (None Seen) Urine Creatinine 77.53 mg/dL (30.0-125.0) Urine Protein/Creatinine Ratio 0.15 Urine Glucose Normal mg/dL (Normal) Urine Total Protein 11.3 mg/dL (1-14) Urine Total Protein 24 Hour 138.6 mg/24 Hr (<149.1) Brief Hx & Hospital Course: Patient is here turned a 24 urine NST BPP performed reassuring Consults/Reason for consult PH Operations or Procedures None Condition at Discharge: Good Final Diagnosis/Problems List 34 week PH reassuring Discharge Disposition: Home Discharge Instruct/Medications Diet: Consistent carbohydrate Diet comment: PH precautions kick counts labor precautions Activity: Light activity Follow Up/Referral: Continue returned as scheduled for routine monitoring. Kick counts labor precautions Scheduled Ferrous Sulfate (Ferrous Sulfate), 1 TAB PO DAILY, (Reported) Metformin Hydrochloride (Metformin Hcl), 500 MG PO DAILY, (Reported) Nitrofurantoin Monohydrate Mac (Macrobid), 100 MG PO BID, (Reported) Vit W/ Ferrous Fumara ( One Daily), 1 TAB PO DAILY, (Reported) Discharge Statement: "Patient was advised to return to the ER or call 911 if any headaches, dizziness, shortness of breath, chest pain, abdominal pain, bleeding, fevers, or worsening of medical condition. Patient was counseled about treatment plan, medications, possible side effects, patientverbalized understanding. All questions were answered to the best of my ability. This discharge took greater then 30 minutes in planning, reviewing documentation, counseling the patient, and discussing with other team members." ASSESSMENT ASSESSMENT Assessment Visit Coding OBGYN Date of Service: Apr 02, 2025 Billing Provider: CHICO MEANS DO AQUATIC SCIENTIST Common Visit Codes: 48675-VKP/OBS SAME DATE (LOW), 66455-XET/OBS SAME DATE (MOD), 89546-BDL/OBS SAME DATE (HIGH) AQUATIC SCIENTIST Procedure Codes: 34158-77- NON-STRESS TEST CHICO MEANS DO Apr 02, 2025 15:23
== END 2025-04-02 14:00 | disposition home or self-care (01) ==
LOC: LDRP 12:00 → UNDOADMOB 12:00 → LDRP 12:17
PROVIDERS: ADMIT Obstetrics & Gynecology; ATTEND Obstetrics & Gynecology
DX: O24.419 Gestational diabetes mellitus in pregnancy, unspecified control (principal); O13.3 Gestational [pregnancy-induced] hypertension without significant proteinuria, third trimester; Z3A.34 34 weeks gestation of pregnancy; Z98.890 Other specified postprocedural states
CPT/HCPCS: 76818; 81001; 81002; 82570; 82962; 84156; 94760; G0378; 59025; 76819

== ENCOUNTER 2025-04-06 05:51 | Observation (INO) | payer OTHER ==
--- NOTE | 2025-04-06 12:40 | DVH ---
BIOPHYSICAL PROFILE HISTORY: GDMA2 TECHNIQUE: Multiple transabdominal real-time grayscale sonographic images through the gravid uterus of the fetus with duplex Doppler color flow and M-mode spectral analysis FINDINGS: BIOPHYSICAL PROFILE: breathing score: 2 movement score: 2 tone score: 2 Quantitative BANDAR score: 2 (BANDAR: 13 Cm.) Total score: 8 The cervix not well visualized Single live fetus in cephalic presentation. heart rate 173 beats per minute. Posterior placenta without previa or abruption IMPRESSION: Biophysical profile score: 8
--- NOTE | 2025-04-06 12:41 | DVHDS2 ---
Physician Discharge Progress N Final Diagnosis: gdm 35wks Operations or Procedures: Operations or Procedures nst reactive reviwed.sono Condition on Discharge: Good Disposition: Home Discharge Instructions: Diet: Consistent carbohydrate Activity: No Restrictions, As Tolerated Follow Up/Referral: as scheduled. Medications: na Follow Up Care: Specialist: 2d Discharge Statement: "Patient was advised to return to the ER or call 911 if any headaches, dizziness, shortness of breath, chest pain, abdominal pain, bleeding, fevers, or worsening of medical condition. Patient was counseled about treatment plan, medications, possible side effects, patientverbalized understanding. All questions were answered to the best of my ability. This discharge took greater then 30 minutes in planning, reviewing documentation, counseling the patient, and discussing with other team members." Visit Coding OBGYN Date of Service: Apr 06, 2025 Billing Provider: EUGENIA POWELL DO NURSE CASE MANAGER Common Visit Codes: 02590-[id number] OBS CARE (HIGH) NURSE CASE MANAGER Procedure Codes: 72339-88- NON-STRESS TEST EUGENIA POWELL DO Apr 06, 2025 12:41
== END 2025-04-06 12:35 | disposition home or self-care (01) ==
LOC: UNDOADMOB 11:18 → LDRP 11:18
PROVIDERS: ADMIT Obstetrics & Gynecology; ATTEND Obstetrics & Gynecology
DX: O24.419 Gestational diabetes mellitus in pregnancy, unspecified control (principal); Z3A.35 35 weeks gestation of pregnancy; Z79.899 Other long term (current) drug therapy; Z98.890 Other specified postprocedural states
CPT/HCPCS: 76818; 81002; 82948; 82962; 94760; G0378; 59025; 76819

== ENCOUNTER 2025-04-10 05:54 | Observation (INO) | payer OTHER ==
--- NOTE | 2025-04-10 12:07 | DVH ---
BIOPHYSICAL PROFILE HISTORY: GDMA2 TECHNIQUE: Multiple transabdominal real-time grayscale sonographic images through the gravid uterus o f the fetus with duplex doppler color flow and M-mode spectral analysis FINDINGS: BIOPHYSICAL PROFILE: breathing score: 2 movement score: 2 tone score: 2 Quantitative BANDAR score: 2 (BANDAR: 15.2 cm.) Total score: 8/8 Single live fetus in cephalic presentation. heart rate 168 beats per minute. Grade 2 posterior placenta without previa or abruption Biophysical profile score 8/8 corresponding to an JAZMÍN of 05/11/25 IMPRESSION: Biophysical profile score: 8/8
--- NOTE | 2025-04-10 12:45 | DVHDS2 ---
Physician Discharge Progress N Final Diagnosis: testing for GDM, A2 Operations or Procedures: Operations or Procedures 34yo IUP@35.3wks VSS per RN NST reactive per RN FKC/PTL/PreE precautions reviewed Dr. Chatman consulted, agrees with POC. Other Interventions Other Interventions [address] [address] Ph: [phone] DIAGNOSTIC IMAGING Diagnostic Imaging Report : [id number] Signed PATIENT: BREA PACE ACCT: [id number] UNIT: [id number] : 1990 LOC: [facility] ROOM / BED: TRIAGE3 / A AGE / SEX: 34 / F ADM STATUS: ADM IN SERVICE 1113 ORDERING PHYSICIAN: PIA FRANCOIS CNM PROCEDURE(s): BPP - BIOPHYSICAL PROFILE REASON: GDMA2 ORDER NUMBER(s): [id number], ACCESSION NUMBER(s): [id number] BIOPHYSICAL PROFILE HISTORY: GDMA2 TECHNIQUE: Multiple transabdominal real-time grayscale sonographic images through the gravid uterus of the fetus with duplex doppler color flow and M-mode spectral analysis FINDINGS: BIOPHYSICAL PROFILE: breathing score: 2 movement score: 2 tone score: 2 Quantitative BANDAR score: 2 (BANDAR: 15.2 cm.) Total score: 8/8 Single live fetus in cephalic presentation. heart rate 168 beats per minute. Grade 2 posterior placenta without previa or abruption Biophysical profile score 8/8 corresponding to an JAZMÍN of 05/11/25 IMPRESSION: Biophysical profile score: 8/8 ATED BY: PITO LAZO MD DICTATED DATE/TIME: 04/10/251204 SIGNED BY: PITO LAZO MD SIGNED DATE/TIME: 04/10/251204 CC: Condition on Discharge: Stable Disposition: Home Discharge Instructions: Diet: Consistent carbohydrate Activity: No Restrictions, As Tolerated Medications: SEE MED LIST Follow Up Care: Specialist: f/u in 3 days Discharge Statement: "Patient was advised to return to the ER or call 911 if any headaches, dizziness, shortness of breath, chest pain, abdominal pain, bleeding, fevers, or worsening of medical condition. Patient was counseled about treatment plan, medications, possible side effects, patientverbalized understanding. All questions were answered to the best of my ability. This discharge took greater then 30 minutes in planning, reviewing documentation, counseling the patient, and discussing with other team members." Visit Coding OBGYN Date of Service: Apr 10, 2025 Billing Provider: PIA FRANCOIS CNM PLANT PACKER Common Visit Codes: 51531-UGMUNHD OBS CARE (HIGH) PLANT PACKER Procedure Codes: 25890-96- NON-STRESS TEST PIA FRANCOIS CNM Apr 10, 2025 12:45
== END 2025-04-10 13:00 | disposition home or self-care (01) ==
LOC: LDRP 11:05
PROVIDERS: ADMIT Obstetrics & Gynecology; ATTEND Obstetrics & Gynecology
DX: O24.419 Gestational diabetes mellitus in pregnancy, unspecified control (principal); Z3A.35 35 weeks gestation of pregnancy; Z79.899 Other long term (current) drug therapy; Z98.890 Other specified postprocedural states
CPT/HCPCS: 76818; 81002; 82948; 82962; G0378; 59025; 76819

== ENCOUNTER 2025-04-13 12:48 | Observation (INO) | payer OTHER ==
[~2025-04-13] VITALS: Ht 162.6 cm; Wt 88.5 kg
--- NOTE | 2025-04-13 14:16 | DVH ---
ULTRASOUND BIOPHYSICAL PROFILE REASON FOR EXAM: GDMA 2. . EGA 36 weeks 0 days (JAZMÍN 05/11/2025). FINDINGS: Two points each were awarded for the following: tone, breathing, movem ent and adequate amniotic fluid index. Heart rate 134 beats per minute. Biophysical profile score is 8 out of a possible 8. The amniotic fluid index is 12.1 cm. The fetus is in cephalic position and th e placenta is fundal. IMPRESSION: BIOPHYSICAL PROFILE SCORE OF 8.
--- NOTE | 2025-04-13 15:04 | DVHDS2 ---
Physician Discharge Progress N Final Diagnosis: GDMA2 36WKS Operations or Procedures: Operations or Procedures NST REACTIVE REVIWED,SONO Condition on Discharge: Good Disposition: Home Discharge Instructions: Diet: Consistent carbohydrate Activity: Light activity Medications: NA Follow Up Care: Specialist: 3D Discharge Statement: "Patient was advised to return to the ER or call 911 if any headaches, dizziness, shortness of breath, chest pain, abdominal pain, bleeding, fevers, or worsening of medical condition. Patient was counseled about treatment plan, medications, possible side effects, patientverbalized understanding. All questions were answered to the best of my ability. This discharge took greater then 30 minutes in planning, reviewing documen tation, counseling the patient, and discussing with other team members." Visit Coding OBGYN Date of Service: Apr 13, 2025 Billing Provider: EUGENIA POWELL DO AUDIO RECORDING ENGINEER Common Visit Codes: 60505-FOWVBYH OBS CARE (HIGH) AUDIO RECORDING ENGINEER Procedure Codes: 82933-65- NON-STRESS TEST EUGENIA POWELL DO Apr 13, 2025 15:04
== END 2025-04-13 14:10 | disposition home or self-care (01) ==
LOC: LDRP 12:48
PROVIDERS: ADMIT Obstetrics & Gynecology; ATTEND Obstetrics & Gynecology
DX: O24.419 Gestational diabetes mellitus in pregnancy, unspecified control (principal); Z3A.36 36 weeks gestation of pregnancy; Z98.890 Other specified postprocedural states; Z79.899 Other long term (current) drug therapy
CPT/HCPCS: 76818; 81002; 82948; 94760; G0378; 59025; 76819

== ENCOUNTER → 2025-04-13 | Outpatient (CLI) | payer OTHER ==
[2025-04-13 12:48] LABS: Hematocrit 40.5 % (36.0-46.0); Hemoglobin 13.4 g/dL (12.2-16.2); Mean Corpuscular Hemoglobin 28.0 pg (28.0-32.0); Mean Corpuscular Volume 85.0 fL (80.0-100.0); Nucleated Red Blood Cells % 0.1 %
== END | disposition home or self-care (01) ==
LOC: LAB 12:02
DX: Z34.80 Encounter for supervision of other normal pregnancy, unspecified trimester (principal); Z3A.00 Weeks of gestation of pregnancy not specified
CPT/HCPCS: 36415; 82962; 85025; 86780

== ENCOUNTER 2025-04-17 06:50 | Observation (INO) | payer OTHER ==
[2025-04-17 13:01] LABS: Urine Protein, UAD Negative (Negative)
[2025-04-17 13:02] LABS: Hematocrit 40.5 % (36.0-46.0); Hemoglobin 13.5 g/dL (12.2-16.2); Mean Corpuscular Hemoglobin 28.2 pg (28.0-32.0); Mean Corpuscular Volume 84.4 fL (80.0-100.0); Nucleated Red Blood Cells % 0.0 %
[2025-04-17 13:13] LABS: Protein, Urine 6.2 mg/dL (1-14)
--- NOTE | 2025-04-17 13:14 | DVH ---
BIOPHYSICAL PROFILE HISTORY: GDMA2 TECHNIQUE: Multiple real-time grayscale sonographic images through the gravid uterus of the fetus with duplex Doppler color flow. FINDINGS: BIOPHYSICAL PROFILE: breathing score: 2 movement score: 2 tone score: 2 Quantitative BANDAR score: 2 Total score: 8 out of 8 Single live intrauterine . Cephalic lie. heart rate 144 beats per minute. BANDAR 16.1 cm. Placenta fundal repositioned. IMPRESSION: Biophysical profile score: 8 out of 8
[2025-04-17 13:16] LABS: INR 0.9 (0.9-1.15); Partial Thromboplastin Time 26.1 SEC (24.5-34.5); Prothrombin Time 9.6 sec (9.3-11.8)
[2025-04-17 13:17] LABS: Alanine Aminotransferase 11 U/L (7-40); Albumin 3.9 g/dL (3.2-4.8); Anion Gap 11 (5-15); BUN/Creatinine Ratio 12.0 (10.0-20.0); Bilirubin, Total 0.6 mg/dL (0.2-1.0); Calcium 8.9 mg/dL (8.7-10.4); Carbon Dioxide 22 mmol/L (20-31); Potassium 4.0 mmol/L (3.5-5.1); Sodium 140 mmol/L (136-145); Total Protein 6.4 g/dL (5.7-8.2)
[2025-04-17 13:19] LABS: Alkaline Phosphatase 143 U/L (46-116); Blood Urea Nitrogen 6 mg/dL (9-23); Chloride 107 mmol/L (98-107); Glucose 70 mg/dL (74-106)
--- NOTE | 2025-04-17 15:03 | DVHDS2 ---
Physician Discharge Progress N Final Diagnosis: gdm,r/o pih 36wks Operations or Procedures: Operations or Procedures nstreactive reviwedsono Condition on Discharge: Good Disposition: Home Discharge Instructions: Diet: Regular Activity: No Restrictions, As Tolerated Medications: na Follow Up Care: Specialist: 2d with 24hr urine Discharge Statement: "Patient was advised to return to the ER or call 911 if any headaches, dizziness, shortness of breath, chest pain, abdominal pain, bleeding, fevers, or worsening of medical condition. Patient was counseled about treatment plan, medications, possible side effects, patientverbalized understanding. All questions were answered to the best of my ability. This discharge took greater then 30 minutes in planning, reviewing documentation, counseling the patient, and discussing with other team members." Visit Coding OBGYN Date of Service: Apr 17, 2025 Billing Provider: EUGENIA POWELL DO PACE ANALYST Common Visit Codes: 41030-[id number] INP/OBS CARE (HIGH) PACE ANALYST Procedure Codes: 24381-31- NON-STRESS TEST EUGENIA POWELL DO Apr 17, 2025 15:03
[2025-04-17 16:23] LABS: Uric Acid 5.6 mg/dL (3.1-7.8)
== END 2025-04-17 14:35 | disposition home or self-care (01) ==
LOC: LDRP 11:23 → UNDOADMOB 11:23 → LDRP 11:35
PROVIDERS: ADMIT Obstetrics & Gynecology; ATTEND Obstetrics & Gynecology
DX: O24.419 Gestational diabetes mellitus in pregnancy, unspecified control (principal); R79.1 Abnormal coagulation profile; Z3A.36 36 weeks gestation of pregnancy; Z98.890 Other specified postprocedural states
CPT/HCPCS: 36415; 76818; 80053; 81001; 81002; 82570; 82948; 82962; 84156; 84550; 85025; 85610; 85730; 94760; G0378; 59025; 76819

== ENCOUNTER 2025-04-20 06:39 | Observation (INO) | payer OTHER ==
[~2025-04-20] VITALS: Ht 162.6 cm; Wt 88.5 kg
[2025-04-20 12:56] LABS: Urine Protein, UAD Negative (Negative)
[2025-04-20 13:03] LABS: Protein, Urine 15.7 mg/dL (1-14)
[2025-04-20 13:24] LABS: 24 Hr. Total Protein, Urine 361.1 mg/24 Hr (<149.1); Urine Total Volume, 24 Hours 2300.0 mL
[2025-04-20] MEDS ORDERED: INSU100I64 SC (13:27)
--- NOTE | 2025-04-20 13:30 | DVH ---
BIOPHYSICAL PROFILE HISTORY: GDMA2 TECHNIQUE: Multiple transabdominal real-time grayscale sonographic images through the gravid uterus of the fetus with duplex Doppler color flow and M-mode spectral analysis FINDINGS: BIOPHYSICAL PROFILE: breathing score: 2 movement score: 2 tone score: 2 Quantitative BANDAR score: 2 (BANDAR: 15.5 Cm MVP: 6.6 cm.) Total score: 8/8 The cervix obscured by head Single live fetus in cephalic presentation. heart rate 161 beats per minute. Fundal Grade 2 placenta without previa or abruption Single live fetus at 37 weeks 0 days Biophysical profile score 8/8 corresponding to an JAZMÍN of 05/11/2025 IMPRESSION: 1. Biophysical profile score: 8/8
--- NOTE | 2025-04-20 18:46 | DVHDS2 ---
Physician Discharge Progress N Final Diagnosis: GDMA2 on Insulin IUP 37 wk Commentary: Commentary NST/BPP/BANDAR all WNL 24h Urine protein elevated 366 mg Condition on Discharge: Stable Disposition: Home Discharge Instructions: Diet: Regular, Consistent carbohydrate Activity: No Restrictions, As Tolerated Follow Up/Referral: As scheduled Medications: N/A Follow Up Care: Discharge Statement: "Patient was advised to return to the ER or call 911 if any headaches, dizziness, shortness of breath, chest pain, abdominal pain, bleeding, fevers, or worsening of medical condition. Patient was counseled about treatment plan, medications, possible side effects, patientverbalized understanding. All questions were answered to the best of my ability. This discharge took greater then 30 minutes in planning, reviewing documentation, counseling the patient, and discussing with other team members." Visit Coding OBGYN Date of Service: Apr 20, 2025 Billing Provider: SUSAN COATS DO AUTOMATIC EDGER Common Visit Codes: 69319-CHK/OBS SAME DATE (HIGH) AUTOMATIC EDGER Procedure Codes: 66423-52- NON-STRESS TEST SUSAN COATS DO Apr 20, 2025 18:46
== END 2025-04-20 13:57 | disposition home or self-care (01) ==
LOC: UNDOADMOB 11:54 → LDRP 11:54
PROVIDERS: ADMIT Obstetrics & Gynecology; ATTEND Obstetrics & Gynecology
DX: O24.414 Gestational diabetes mellitus in pregnancy, insulin controlled (principal); Z3A.37 37 weeks gestation of pregnancy; Z98.890 Other specified postprocedural states; Z79.899 Other long term (current) drug therapy
CPT/HCPCS: 36415; 76818; 81001; 81002; 82570; 82948; 82962; 84156; 84550; 94760; G0378; 59025; 76819

== ENCOUNTER 2025-04-24 06:06 | Observation (INO) | payer OTHER ==
[~2025-04-24 06:06] MED LIST changes: +INSU100I64 SC
--- NOTE | 2025-04-24 13:06 | DVH ---
BIOPHYSICAL PROFILE HISTORY: PIH/GDMA2 TECHNIQUE: Multiple transabdominal real-time grayscale sonographic images through the gravid uterus of the fetus with duplex Doppler color flow and M-mode spectral analysis FINDINGS: BIOPHYSICAL PROFILE: breathing score: 2 movement score: 2 tone score: 2 Quantitative BANDAR score: 2 (BANDAR: 15.8 Cm.) Total score: 8 The cervix is not well-visualized Single live fetus in cephalic presentation. heart rate 158 beats per minute. Grade 2 posterior fundal placenta without previa or abruption IMPRESSION: Biophysical profile score: 8/8
[2025-04-24 13:31] LABS: Hematocrit 39.6 % (36.0-46.0); Hemoglobin 13.2 g/dL (12.2-16.2); Mean Corpuscular Hemoglobin 28.4 pg (28.0-32.0); Mean Corpuscular Volume 84.9 fL (80.0-100.0); Nucleated Red Blood Cells % 0.1 %
[2025-04-24 13:38] LABS: Urine Protein, UAD Negative (Negative)
[2025-04-24 13:49] LABS: Albumin 3.7 g/dL (3.2-4.8); Anion Gap 11 (5-15); BUN/Creatinine Ratio 16.1 (10.0-20.0); Bilirubin, Total 0.6 mg/dL (0.2-1.0); Calcium 9.5 mg/dL (8.7-10.4); Carbon Dioxide 26 mmol/L (20-31); Chloride 105 mmol/L (98-107); Glucose 77 mg/dL (74-106); INR 0.86 (0.9-1.15); Partial Thromboplastin Time 26.1 SEC (24.5-34.5); Potassium 4.1 mmol/L (3.5-5.1); Prothrombin Time 9.3 sec (9.3-11.8); Sodium 142 mmol/L (136-145); Total Protein 5.8 g/dL (5.7-8.2); Uric Acid 6.4 mg/dL (3.1-7.8)
[2025-04-24 13:50] LABS: Alanine Aminotransferase 9 U/L (7-40); Alkaline Phosphatase 153 U/L (46-116); Blood Urea Nitrogen 9 mg/dL (9-23)
--- NOTE | 2025-04-24 14:31 | DVHDS2 ---
Physician Discharge Progress N Final Diagnosis: testing for GDM, A2 Secondary Diagnosis: ruled out preeclampsia Operations or Procedures: Operations or Procedures 34yo IUP@37.3wks, +FM, denies UCs/VB/LOF/SO/vision changes/RUQ pain VSS, normotensive per RN NST reactive per RN FKC/preE/labor precautions reviewed Dr. Chatman consulted, agrees with POC. Lab is unable to run urine P/C ratio until maintenance on the machine is complete. Laboratory Tests Test 04/24/25 12:47 Range/Units White Blood Count 8.3 4.4-10.8 10^3/uL Red Blood Count 4.66 4.0-5.20 10^6/uL Hemoglobin 13.2 12.2-16.2 g/dL Hematocrit 39.6 36.0-46.0 % Mean Corpuscular Volume 84.9 80.0-100.0 fL Mean Corpuscular Hemoglobin 28.4 28.0-32.0 pg Mean Corpuscular Hemoglobin Concent 33.5 32.0-36.0 g/dL Red Cell Distribution Width 14.7 H 11.8-14.3 % Platelet Count 187 140-450 10^3/uL Mean Platelet Volume 9.4 6.9-10.8 fL Neutrophils (%) (Auto) 80.1 H 37.0-80.0 % Lymphocytes (%) (Auto) 13.6 10.0-50.0 % Monocytes (%) (Auto) 5.4 0.0-12.0 % Eosinophils (%) (Auto) 0.5 0.0-7.0 % Basophils (%) (Auto) 0.4 0.0-2.0 % Neutrophils # (Auto) 6.6 1.6-8.6 10 ^3/uL Lymphocytes # (Auto) 1.1 0.4-5.4 10 ^3/uL Monocytes # (Auto) 0.4 0-1.3 10 ^3/uL Eosinophils # (Auto) 0 0-0.8 10 ^3/uL Basophils # (Auto) 0 0-0.2 10 ^3/uL Nucleated Red Blood Cells 0.1 % Prothrombin Time 9.3 9.3-11.8 sec Prothrombin Time INR 0.86 L 0.9-1.15 Activated Partial Thromboplast Time 26.1 24.5-34.5 SEC Urine Color Light-yellow Yellow Urine Clarity Clear Clear Urine pH 6.5 5.0-9.0 Urine Specific [place] 1.013 1.001-1.035 Urine Protein Negative Negative Urine Ketones Negative Negative Urine Blood Negative Negative /uL Urine Nitrite Negative Negative Urine Bilirubin Negative Negative Urine Urobilinogen Normal Negative mg/dL Urine Leukocyte Esterase 2+ Negative /uL Urine RBC 1 0 - 4 /hpf Urine Microscopic WBC 13 H 0-5 /HPF Urine Squamous Epithelial Cells Few <5 /hpf Urine Bacteria None seen None Seen /hpf Urine Creatinine Pending Urine Protein/Creatinine Ratio Pending Urine Glucose Normal Normal mg/dL Urine Total Protein Pending Sodium Level 142 136-145 mmol/L Potassium Level 4.1 3.5-5.1 mmol/L Chloride Level 105 98-107 mmol/L Carbon Dioxide Level 26 20-31 mmol/L Anion Gap 11 5-15 Blood Urea Nitrogen 9 9-23 mg/dL Creatinine 0.56 0.550-1.02 mg/dL Glomerular Filtration Rate Calc 124 >90 mL/min BUN/Creatinine Ratio 16.1 10.0-20.0 Serum Glucose 77 74-106 mg/dL Uric Acid 6.4 3.1-7.8 mg/dL Calcium Level 9.5 8.7-10.4 mg/dL Total Bilirubin 0.6 0.2-1.0 mg/dL Aspartate Amino Transferase (AST) 13 13-40 U/L Alanine Aminotransferase (ALT) 9 7-40 U/L Alkaline Phosphatase 153 H 46-116 U/L Total Protein 5.8 5.7-8.2 g/dL Albumin 3.7 3.2-4.8 g/dL Other Interventions Other Interventions [place] [address] Ph: [phone] DIAGNOSTIC IMAGING Diagnostic Imaging Report : [id number] Signed PATIENT: BREA PACE ACCT: [id number] UNIT: [id number] : 1990 LOC: [facility] ROOM / BED: TRIAGE2 / A AGE / SEX: 34 / F ADM STATUS: ADM IN SERVICE 1223 ORDERING PHYSICIAN: PIA FRANCOIS CNM PROCEDURE(s): BPP - BIOPHYSICAL PROFILE REASON: PIH/GDMA2 ORDER NUMBER(s): [id number], ACCESSION NUMBER(s): [id number] BIOPHYSICAL PROFILE HISTORY: PIH/GDMA2 TECHNIQUE: Multiple transabdominal real-time grayscale sonographic images through the gravid uterus of the fetus with duplex Doppler color flow and M-mode spectral analysis FINDINGS: BIOPHYSICAL PROFILE: breathing score: 2 movement score: 2 tone score: 2 Quantitative BANDAR score: 2 (BANDAR: 15.8 Cm.) Total score: 8 The cervix is not well-visualized Single live fetus in cephalic presentation. heart rate 158 beats per minute. Grade 2 posterior fundal placenta without previa or abruption IMPRESSION: Biophysical profile score: 8/8 ATED BY: ROSA JONES DO DICTATED DATE/TIME: 04/24/25 130 SIGNED BY: ROSA JONES DO SIGNED DATE/TIME: 04/24/25 130 CC: Condition on Discharge: Stable Disposition: Home Discharge Instructions: Diet: Regular Activity: No Restrictions, As Tolerated Medications: see med list Follow Up Care: Specialist: f/u in 3 days Discharge Statement: "Patient was advised to return to the ER or call 911 if any headaches, dizziness, shortness of breath, chest pain, abdominal pain, bleeding, fevers, or worsening of medical condition. Patient was counseled about treatment plan, medications, possible side effects, patientverbalized understanding. All questions were answered to the best of my ability. This discharge took greater then 30 minutes in planning, reviewing documentation, counseling the patient, and discussing with other team members." Visit Coding OBGYN Date of Service: Apr 24, 2025 Billing Provider: PIA FRANCOIS CNM CUTTING MACHINE OFFBEARER Common Visit Codes: [id number] OBS CARE (HIGH) CUTTING MACHINE OFFBEARER Procedure Codes: 29559-67- NON-STRESS TEST PIA FRANCOIS CNM Apr 24, 2025 14:31
[2025-04-24 16:34] LABS: Protein, Urine 13.2 mg/dL (1-14)
== END 2025-04-24 14:11 | disposition home or self-care (01) ==
LOC: LDRP 12:06
PROVIDERS: ADMIT Obstetrics & Gynecology; ATTEND Obstetrics & Gynecology
DX: O24.419 Gestational diabetes mellitus in pregnancy, unspecified control (principal); R79.1 Abnormal coagulation profile; Z3A.37 37 weeks gestation of pregnancy; Z98.890 Other specified postprocedural states
CPT/HCPCS: 36415; 76818; 80053; 81001; 81002; 82570; 84156; 84550; 85025; 85610; 85730; 94760; 96360; 96361; G0378; 59025; 76819

== ENCOUNTER 2025-04-27 12:10 | Observation (INO) | payer OTHER ==
--- NOTE | 2025-04-27 13:11 | DVH ---
BIOPHYSICAL PROFILE HISTORY: GDMA2 Comparison Study: US BIOPHYSICAL PROFILE on DOS: 04/24/25, US BIOPHYSICAL PROFILE on DOS: 04/20/25, US BIOPHYSICAL PROFILE on DOS: 04/17/25, US BIOPHYSICAL PROFILE on DOS: 04/13/25, US BIOPHYSICAL PROFILE on DOS: 04/10/25 TECHNIQUE: Multiple real-time grayscale sonographic images through the gravid uterus of the fetus with duplex Doppler color flow and M-mode spectral analysis FINDINGS: BIOPHYSICAL PROFILE: breathing score: 2 movement score: 2 tone score: 2 Quantitative BANDAR score: 2 (BANDAR: 16.4 Cm.) Total score: 8 The cervix is not visualized Single live fetus in cephalic presentation. heart rate 153 beats per minute. Grade 2, posterior /fundal placenta without previa or abruption IMPRESSION: Biophysical profile score: 8
--- NOTE | 2025-04-27 13:19 | DVHDS2 ---
Physician Discharge Progress N Final Diagnosis: gdma2 38wks Operations or Procedures: Operations or Procedures nst reactive reviwed,sono Condition on Discharge: Good Disposition: Home Discharge Instructions: Diet: Consistent carbohydrate Activity: No Restrictions, As Tolerated Medications: na Follow Up Care: Specialist: 3d Discharge Statement: "Patient was advised to return to the ER or call 911 if any headaches, dizziness, shortness of breath, chest pain, abdominal pain, bleeding, fevers, or worsening of medical condition. Patient was counseled about treatment plan, medications, possible side effects, patientverbalized understanding. All questions were answered to the best of my ability. This discharge took greater then 30 minutes in planning, reviewing documentation, counseling the patient, and discussing with other team members." Visit Coding OBGYN Date of Service: Apr 27, 2025 Billing Provider: EUGENIA POWELL DO CONTINUOUS DRIER HELPER Common Visit Codes: [id number] OBS CARE (HIGH) CONTINUOUS DRIER HELPER Procedure Codes: 72583-86- NON-STRESS TEST EUGENIA POWELL DO Apr 27, 2025 13:19
[2025-04-27 14:00] LABS: Hematocrit 40.1 % (36.0-46.0); Hemoglobin 13.3 g/dL (12.2-16.2); Mean Corpuscular Hemoglobin 27.9 pg (28.0-32.0); Mean Corpuscular Volume 84.4 fL (80.0-100.0); Nucleated Red Blood Cells % 0.0 %
[2025-04-27 14:14] LABS: INR 0.88 (0.9-1.15); Partial Thromboplastin Time 25.6 SEC (24.5-34.5); Prothrombin Time 9.4 sec (9.3-11.8)
[2025-04-27 14:16] LABS: Urine Protein, UAD TRACE (Negative)
[2025-04-27 14:18] LABS: Alanine Aminotransferase 10 U/L (7-40); Albumin 3.7 g/dL (3.2-4.8); Anion Gap 11 (5-15); BUN/Creatinine Ratio 14.9 (10.0-20.0); Bilirubin, Total 0.5 mg/dL (0.2-1.0); Calcium 9.1 mg/dL (8.7-10.4); Carbon Dioxide 21 mmol/L (20-31); Potassium 4.0 mmol/L (3.5-5.1); Sodium 139 mmol/L (136-145); Total Protein 6.1 g/dL (5.7-8.2); Uric Acid 5.6 mg/dL (3.1-7.8)
[2025-04-27 14:19] LABS: Alkaline Phosphatase 144 U/L (46-116); Blood Urea Nitrogen 7 mg/dL (9-23); Chloride 107 mmol/L (98-107); Glucose 67 mg/dL (74-106)
[2025-04-27 14:23] LABS: Protein, Urine 31.4 mg/dL (1-14)
== END 2025-04-27 15:20 | disposition home or self-care (01) ==
LOC: UNDOADMOB 12:10 → LDRP 12:10
PROVIDERS: ADMIT Obstetrics & Gynecology; ATTEND Obstetrics & Gynecology
DX: O24.419 Gestational diabetes mellitus in pregnancy, unspecified control (principal); Z3A.38 38 weeks gestation of pregnancy; Z98.890 Other specified postprocedural states; Z79.899 Other long term (current) drug therapy; Z86.2 Personal history of diseases of the blood and blood-forming organs and certain disorders involving the immune mechanism
CPT/HCPCS: 36415; 59025; 76819; 80053; 81001; 81002; 82570; 82948; 82962; 84156; 84550; 85025; 85610; 85730; 94760; G0378; 76818

== ENCOUNTER 2025-04-28 21:14 | Inpatient (IN) | payer OTHER ==
[~2025-04-28] VITALS: Ht 162.6 cm; Wt 89.4 kg
[2025-04-28] MEDS ORDERED: LIDOCAINE 2%HCL (LOCAL ANESTH.) INJ 20ML MDV IJ PRN (21:30)
[2025-04-28] MEDS ORDERED: NALBUPHINE HCL 10 MG/1ml INJECTION IV PRN (21:30)
[2025-04-28] MEDS: PENICILLIN G POT 5MIL/D5 50ML 50 ML IV ONE (22:00)
[2025-04-28] MEDS ORDERED: ACCU-CHEK COMFORT CURVE STRIP VI SCH (22:00)
[2025-04-28 22:48] LABS: Hematocrit 38.4 % (36.0-46.0); Hemoglobin 12.9 g/dL (12.2-16.2); Mean Corpuscular Hemoglobin 28.4 pg (28.0-32.0); Mean Corpuscular Volume 84.9 fL (80.0-100.0); Nucleated Red Blood Cells % 0.0 %
[2025-04-28 23:01] LABS: INR 0.9 (0.9-1.15); Partial Thromboplastin Time 26.2 SEC (24.5-34.5); Prothrombin Time 9.6 sec (9.3-11.8)
[2025-04-28 23:02] LABS: Anion Gap 14 (5-15); BUN/Creatinine Ratio 11.5 (10.0-20.0); Calcium 9.0 mg/dL (8.7-10.4); Glucose 95 mg/dL (74-106); Sodium 141 mmol/L (136-145); Total Protein 6.2 g/dL (5.7-8.2)
[2025-04-28 23:03] LABS: Albumin 3.8 g/dL (3.2-4.8); Bilirubin, Total 0.5 mg/dL (0.2-1.0)
[2025-04-28 23:09] LABS: Alanine Aminotransferase < 9 U/L (7-40); Alkaline Phosphatase 147 U/L (46-116); Blood Urea Nitrogen 7 mg/dL (9-23); Carbon Dioxide 19 mmol/L (20-31); Chloride 108 mmol/L (98-107); Potassium 3.5 mmol/L (3.5-5.1)
[2025-04-28 23:11] LABS: Urine Protein, UAD Negative (Negative)
[2025-04-28 23:24] LABS: Amphetamine Screen, Urine Neg (NEGATIVE); Barbiturate Scree,Urine Neg (NEGATIVE); Benzodiazephine Screen, Urine Neg (NEGATIVE); Cannabinoid Screen, Urine Neg (NEGATIVE); Cocaine Screen, Urine Neg (NEGATIVE); Opiate Scree,Urine Neg (NEGATIVE); Phencyclidine Screen, Urine Neg (NEGATIVE); Protein, Urine < 6.0 mg/dL (1-14)
[2025-04-29] MEDS ORDERED: LORazepam 2MG/ML-1ML VIAL IV PRN
[2025-04-29] MEDS: WITCH HAZEL-GLYCERIN PAD TOP PRN (00:20)
[2025-04-29] MEDS: DERMOPLAST 60ML BOTTLE TOP PRN (00:20)
[2025-04-29] MEDS: PHISODERM TOP SOLN 240ML BTL TOP PRN (00:20)
[2025-04-29] MEDS: MAGNESIUM SULFATE 100 ML IV ONE (00:43)
[2025-04-29] MEDS: PENICILLIN G POTASSIUM 2,500,000 UNITS in D5W 5% 50 ML IV SCH (01:30)
[2025-04-29] MEDS ORDERED: NALOXONE HCL 0.4 MG/ML VIAL IV PRN ×2 (02:45→03:00)
[2025-04-29] MEDS ORDERED: LACTATED RINGER'S 500 ML IV ONE (02:45)
[2025-04-29] MEDS: ONDANSETRON HCL 4 MG/2 ML VIAL IV ONE (04:51)
[2025-04-29] MEDS: hydrALAZINE HCL 20 MG/ML VL IV PRN (04:57)
[2025-04-29] MEDS: LACTATED RINGER'S 1,000 ML IV SCH (05:00)
[2025-04-29] MEDS: ROPIVACAINE HCL 100 ML ONE (05:09)
[2025-04-29] MEDS: MAGNESIUM SULFATE 40MG/ML 1,000 ML IV SCH (05:11)
--- NOTE | 2025-04-29 07:17 | DVHHP2 ---
OB CC & HPI Date Date of Admission: Apr 28, 2025 Patient Identification: : 3 Para: 1 EDC: May 10, 2025 EGA: 38 07/21 Chief Complaints: Reason for admission: induction of labor Admission Nurse Assessment Rev: No History of Present Complaints Preeclampsia GDM A2 Past Medical History Cardiac: No pertinent Hx Pulmonary: No pertinent Hx Central Nervous System: No pertinent Hx GI: No pertinent Hx Hemotology/Oncology: No pertinent Hx Hepatobiliary: No pertinent Hx Psychiatric: No pertinent Hx Musculoskeletal: No pertinent Hx Rheumotologic: No pertinent Hx Infectious Disease: No peritnent Hx ENT: No pertinent Hx Renal/: No pertinent Hx Endocrine: No pertinent Hx Dermatology: No pertinent Hx Past Surgical History: Other OB History OB History Care: Good Care Ultrasounds: Normal mid trimester US Obstetrical Complications: None Medical Complications: None Allergies: Coded Allergies: No Known Drug Allergy (Verified Allergy, Unknown, 05/22/22) Home Meds Reported Medications Insulin Glargine (Basaglar Tempo Pen) 100 Unit/Ml Inj, 19 UNIT SC, INJ 04/20/25 Metformin Hydrochloride (Metformin Hcl) 500 Mg Tab, 500 MG PO DAILY for 30 Days, MG 03/21/25 Nitrofurantoin Monohydrate Mac (Macrobid) 100 Mg Cap, 100 MG PO BID for 7 Days, CAP 06/04/22 Ferrous Sulfate (FERROUS SULFATE) 325 Mg Tb, 1 TAB PO DAILY, #30 TAB 3 Refills 05/22/22 Vit W/ Ferrous Fumara ( One Daily) Daily Tab, 1 TAB PO DAILY, #90 TAB 3 Refills 05/05/22 Current Medications Current Medications Medications (Trade) Dose Ordered Sig/Shanthi Route PRN Reason Start Time Stop Time Status Last Admin Lactated Ringer's 1,000 ml @ 125 mls/hr Q8H IV 04/28/25 21:30 04/29/25 06:42 Nalbuphine HCl (Nubain) 10 mg Q4HP PRN IV MODERATE PAIN (4-6 PAIN SCALE) 04/28/25 21:30 Penicillin G Potassium [id number] units/Dextrose 50 ml @ 100 mls/hr Q4H IV 04/29/25 01:30 Diagnostic Test (Pha) (Accu-Chek Comfort Curve T) 1 strip Q4HR 04/28/25 22:00 Witch Kylee (Tucks) 1 pad PRN PRN TOP PERINEAL AREA DISCOMFORT 04/28/25 21:30 04/29/25 00:20 Sodium Lauryl Sulfate (Phisoderm) 240 ml PRN PRN TOP PERINEAL AREA DISCOMFORT 04/28/25 21:30 04/29/25 00:20 Benzocaine (Dermoplast) 1 applic PRN PRN TOP PERINEAL AREA DISCOMFORT 04/28/25 21:30 04/29/25 00:20 Lidocaine HCl (Xylocaine) 40 ml ONCE PRN IJ PERINEAL AREA DISCOMFORT 04/28/25 21:30 Hydralazine HCl (Apresoline Injection) 5 mg Q20MP PRN IV SBP>160 or DBP>105 04/28/25 22:30 04/29/25 04:57 Magnesium Sulfate 1,000 ml @ 50 mls/hr Q20H IV 04/29/25 00:00 04/29/25 05:11 Lorazepam (Ativan Inj) 4 mg ONCE PRN IV SEIZURES 04/29/25 00:00 Naloxone HCl (Narcan) 0.2 mg PRN PRN IV 04/29/25 02:45 04/29/25 02:46 DC Ephedrine Sulfate (ePHEDrine SULFATE) 10 mg PRN PRN IV 04/29/25 02:45 04/29/25 02:46 DC Ephedrine Sulfate (ePHEDrine SULFATE) 10 mg PRN PRN IV 04/29/25 03:00 04/29/25 03:01 DC Naloxone HCl (Narcan) 0.2 mg PRN PRN IV 04/29/25 03:00 04/29/25 03:01 DC Review of Systems Constitutional: No symptom reported Ears, Nose, & Throat: No symptom reported Eyes: No symptom reported Pulmonary/Respiratory: No symptom reported Cardiovascular: No symptom reported Gastrointestinal: No symptom reported Genitourinary: No symptom reported Musculoskeletal: No symptom reported Skin: No symptom reported Psychiatric: No symptom reported Endocrine: No symptom reported Hemotologic/Lymphatic: No symptom reported OB Admission Exam Physical Exam Vitals: Vital Signs Date Time Temp Pulse Resp B/P (MAP) Pulse Ox O2 Delivery O2 Flow Rate FiO2 04/29/25 04:57 184/113 HEENT: TMs Normal, Fontanelles Normal, Nasal Mucosa Normal, Eyes non-injected, Oropharynx Normal, PERRLA, Moist Membranes, EOMI Heart: Rhythm Normal Lungs: Clear Abdomen: Non tender Extremities: Normal Reflexes: Normal Cervical Dilatation: 1cm Effacement: 75% Station: -2 Membranes: Intact Heart Rate: 130's Accelerations: Accelerations Present Decelerations: No Decelerations Short Term Variability: Present Seo Executive Variability: Average (6-25) Contractions on Admission: None Intensity: Mild OB Plan Plan Admitting Diagnosis: Induction of Labor GDM A2 preeclampsia 38+ weeks Plan: Induction Other Plan: Cytotec, Risks benefits complications alternatives discussed patient had only wants to proceed with induction. CHICO MEANS DO Apr 29, 2025 07:17
--- NOTE | 2025-04-29 07:21 | DVHPN2 ---
Chief Complaints Patient reports: No new complaints, Feels better Nursing reports: No new complaints, No abdominal pain, No chest pain, No dizziness, No cough, Other (Patient has had no significant change since admission given her history of increasing blood pressures for potential macrosomia options for -section was given and patient had no we will proceed risks benefits complications discussed not limited infection bleeding anesthesia acute and chronic damage damage to adjacent organs in the future risks and benefits associated risks see versus repeat -section.) Objective Vitals Vital Signs Date Time Temp Pulse Resp B/P (MAP) Pulse Ox O2 Delivery O2 Flow Rate FiO2 04/29/25 04:57 184/113 Medications Current Medications Medications (Trade) Dose Ordered Sig/Shanthi Route PRN Reason Start Time Stop Time Status Last Admin Benzocaine (Dermoplast) 1 applic PRN PRN TOP PERINEAL AREA DISCOMFORT 04/28/25 21:30 04/29/25 00:20 Diagnostic Test (Pha) (Accu-Chek Comfort Curve T) 1 strip Q4HR 04/28/25 22:00 Hydralazine HCl (Apresoline Injection) 5 mg Q20MP PRN IV SBP>160 or DBP>105 04/28/25 22:30 04/29/25 04:57 Lactated Ringer's 1,000 ml @ 125 mls/hr Q8H IV 04/28/25 21:30 04/29/25 06:42 Lidocaine HCl (Xylocaine) 40 ml ONCE PRN IJ PERINEAL AREA DISCOMFORT 04/28/25 21:30 Lorazepam (Ativan Inj) 4 mg ONCE PRN IV SEIZURES 04/29/25 00:00 Magnesium Sulfate 1,000 ml @ 50 mls/hr Q20H IV 04/29/25 00:00 04/29/25 05:11 Nalbuphine HCl (Nubain) 10 mg Q4HP PRN IV MODERATE PAIN (4-6 PAIN SCALE) 04/28/25 21:30 Penicillin G Potassium [id number] units/Dextrose 50 ml @ 100 mls/hr Q4H IV 04/29/25 01:30 Sodium Lauryl Sulfate (Phisoderm) 240 ml PRN PRN TOP PERINEAL AREA DISCOMFORT 04/28/25 21:30 04/29/25 00:20 Witch Kylee (Tucks) 1 pad PRN PRN TOP PERINEAL AREA DISCOMFORT 04/28/25 21:30 04/29/25 00:20 General: Normal Head/Eyes: Normal Lungs: Normal Cardiovascular: Normal Abdominal: Normal Musculoskeletal: Normal Extremities: Normal Skin: Normal Studies Laboratory Tests 04/28/25 22:08 Test 04/28/25 22:08 Range/Units Serum Glucose 95 74-106 mg/dL Ass/Plan Assessment Failure to progress, potential macrosomia, increased blood pressures Plan section low transverse primary. CHICO MEANS DO Apr 29, 2025 07:21
--- NOTE | 2025-04-29 07:27 | DVHOP2 ---
Operative Report - 2 Report Details Date: Surgeon: CHICO MEANS DO Apr 29, 2025 07:27
--- NOTE | 2025-04-29 08:01 | LDN2 ---
Labor and Delivery Note Date 04/29/25 Age 34 3 Para 1 AB 1 EDC 38+ weeks EGA 38+ weeks Diagnosis 38 + weeks , GDMA2 Pre eclampsia Vaginal Delivery: VTX Vacuum Assisted: No Placenta: Spontaneous Nuchal Cord Transected: No Amniotic Fluid: Clear Labs Blood Bank 04/28/25 22:08: Blood Type B POSITIVE Complications none Conditions stable guarded Loss Prevention Research Engineer non present Visit Coding OBGYN Date of Service: Apr 29, 2025 Billing Provider: CHICO MEANS DO FIRE LIEUTENANT MARINE Common Visit Codes: [id number] INP/OBS CARE(HIGH), 57345-QBI/OBS SAME DATE (LOW), 60554-FLN/OBS SAME DATE (MOD) FIRE LIEUTENANT MARINE Procedure Codes: [id number] OB CARE,VAG DELIVERY CHICO MEANS DO Apr 29, 2025 08:01
[2025-04-29] MEDS: LACT. RINGERS/OXYTOCIN 20UNITS 500 ML IV ONE ×2 (11:34)
[2025-04-29] MEDS: LACT. RINGERS/OXYTOCIN 20UNITS 1,000 ML IV SCH (11:36)
[2025-04-29 15:02] VITALS: BP 142/76; PULSE 91; RESP 17; TEMP 98.6
[2025-04-29] MEDS ORDERED: ONDANSETRON ODT 4 MG TAB PO PRN (16:00)
[2025-04-29] MEDS: IBUPROFEN 600 MG TAB PO PRN (16:38)
[2025-04-29] MEDS: LABETALOL HCL 200 MG TAB PO SCH (17:06)
[2025-04-29 19:00] VITALS: BP 126/76; PULSE 84; RESP 18; TEMP 98.7
[2025-04-29 23:30] VITALS: BP 134/81; PULSE 86; RESP 20; TEMP 98.5
[2025-04-30 05:00] VITALS: BP 130/70; PULSE 86; RESP 20; TEMP 98.8
--- NOTE | 2025-04-30 05:04 | DVHPN2 ---
Chief Complaints Patient reports: No new complaints, Feels better Nursing reports: No new complaints, No abdominal pain, No chest pain, No dizziness, No cough, Other (Patient has had no significant change since admission given her history of increasing blood pressures for potential macrosomia options for -section was given and patient had no we will proceed risks benefits complications discussed not limited infection bleeding anesthesia acute and chronic damage damage to adjacent organs in the future risks and benefits associated risks see versus repeat -section.) Objective Vitals Vital Signs Date Time Temp Pulse Resp B/P (MAP) Pulse Ox O2 Delivery O2 Flow Rate FiO2 04/29/25 23:30 98.5 86 20 134/81 (98) 98.5 04/29/25 19:00 Room Air Medications Current Medications Medications (Trade) Dose Ordered Sig/Shanthi Route PRN Reason Start Time Stop Time Status Last Admin Acetaminophen (Tylenol Tablet) 650 mg Q4HP PRN PO MILD PAIN (1-3 PAIN SCALE) 04/29/25 16:00 Ibuprofen (Motrin Tablet) 600 mg Q6HP PRN PO MODERATE PAIN (4-6 PAIN SCALE) 04/29/25 16:00 04/30/25 03:32 Labetalol HCl (Normodyne Tablet) 100 mg Q12H PO 04/29/25 17:00 04/29/25 17:06 Ondansetron HCl (Zofran Po) 4 mg Q4HPRN PRN PO NAUSEA / VOMITING 04/29/25 16:00 Oxytocin 1,000 ml @ 6 ml/hr Q24H IV 04/29/25 10:30 04/29/25 11:36 General: Normal Head/Eyes: Normal Lungs: Normal Cardiovascular: Normal Abdominal: Normal Musculoskeletal: Normal Extremities: Normal Skin: Normal Studies Laboratory Tests 04/28/25 22:08 Test 04/28/25 22:08 Range/Units Serum Glucose 95 74-106 mg/dL Ass/Plan Assessment Status post stable improved Plan Advanced care see connor. CHICO MEANS DO Apr 30, 2025 05:04
--- NOTE | 2025-04-30 05:07 | DVHDS2 ---
Discharge Summary Date of Admission Apr 28, 2025 at 21:14 Date of Discharge: Apr 30, 2025 Admitting Diagnosis Spontaneous rupture of membrane 40+ weeks early active labor Labs/Diagnostic Data: Laboratory Results Test 04/29/25 16:05 04/29/25 07:20 04/28/25 22:30 04/28/25 22:08 Magnesium Lvl (Mg Sulfate Therapy) 2.28 mg/dL (4.0-7.1) POC Glucose 105 mg/dl (70-106) Urine Color Colorless (Yellow) Urine Clarity Clear (Clear) Urine pH 6.5 (5.0-9.0) Urine Specific [place] 1.009 (1.001-1.035) Urine Protein Negative (Negative) Urine Ketones Negative (Negative) Urine Blood Negative /uL (Negative) Urine Nitrite Negative (Negative) Urine Bilirubin Negative (Negative) Urine Urobilinogen Normal mg/dL (Negative) Urine Leukocyte Esterase 1+ /uL (Negative) Urine RBC None seen /hpf (0 - 4) Urine Microscopic WBC 2 /HPF (0-5) Urine Squamous Epithelial Cells Few /hpf (<5) Urine Bacteria None seen /hpf (None Seen) Urine Creatinine 46.46 mg/dL (30.0-125.0) Urine Protein/Creatinine Ratio 0.13 Urine Glucose Normal mg/dL (Normal) Urine Total Protein < 6.0 mg/dL (1-14) Urine Opiates Screen Neg (NEGATIVE) Urine Fentanyl Screen Neg (NEGATIVE) Urine Barbiturates Screen Neg (NEGATIVE) Urine Phencyclidine Screen Neg (NEGATIVE) Urine Amphetamines Screen Neg (NEGATIVE) Urine Benzodiazepines Screen Neg (NEGATIVE) Urine Cocaine Screen Neg (NEGATIVE) Urine Cannabinoids Screen Neg (NEGATIVE) White Blood Count 9.3 10^3/uL (4.4-10.8) Red Blood Count 4.53 10^6/uL (4.0-5.20) Hemoglobin 12.9 g/dL (12.2-16.2) Hematocrit 38.4 % (36.0-46.0) Mean Corpuscular Volume 84.9 fL (80.0-100.0) Mean Corpuscular Hemoglobin 28.4 pg (28.0-32.0) Mean Corpuscular Hemoglobin Concent 33.5 g/dL (32.0-36.0) Red Cell Distribution Width 14.9 % (11.8-14.3) Platelet Count 195 10^3/uL (140-450) Mean Platelet Volume 9.4 fL (6.9-10.8) Neutrophils (%) (Auto) 77.0 % (37.0-80.0) Lymphocytes (%) (Auto) 17.2 % (10.0-50.0) Monocytes (%) (Auto) 5.2 % (0.0-12.0) Eosinophils (%) (Auto) 0.4 % (0.0-7.0) Basophils (%) (Auto) 0.2 % (0.0-2.0) Neutrophils # (Auto) 7.2 10 ^3/uL (1.6-8.6) Lymphocytes # (Auto) 1.6 10 ^3/uL (0.4-5.4) Monocytes # (Auto) 0.5 10 ^3/uL (0-1.3) Eosinophils # (Auto) 0 10 ^3/uL (0-0.8) Basophils # (Auto) 0 10 ^3/uL (0-0.2) Nucleated Red Blood Cells 0.0 % Prothrombin Time 9.6 sec (9.3-11.8) Prothrombin Time INR 0.90 (0.9-1.15) Activated Partial Thromboplast Time 26.2 SEC (24.5-34.5) Sodium Level 141 mmol/L (136-145) Potassium Level 3.5 mmol/L (3.5-5.1) Chloride Level 108 mmol/L (98-107) Carbon Dioxide Level 19 mmol/L (20-31) Anion Gap 14 (5-15) Blood Urea Nitrogen 7 mg/dL (9-23) Creatinine 0.61 mg/dL (0.550-1.02) Glomerular Filtration Rate Calc 122 mL/min (>90) BUN/Creatinine Ratio 11.5 (10.0-20.0) Serum Glucose 95 mg/dL (74-106) Uric Acid 6.5 mg/dL (3.1-7.8) Calcium Level 9.0 mg/dL (8.7-10.4) Total Bilirubin 0.5 mg/dL (0.2-1.0) Aspartate Amino Transferase (AST) 14 U/L (13-40) Alanine Aminotransferase (ALT) < 9 U/L (7-40) Alkaline Phosphatase 147 U/L (46-116) Total Protein 6.2 g/dL (5.7-8.2) Albumin 3.8 g/dL (3.2-4.8) Treponema pallidum Antibody Non-reactive (Negative) Other Laboratory Tests 04/28/25 22:08 Brief Hx & Hospital Course: Patient administered from augmented delivered no issues. Operations or Procedures Condition at Discharge: Good Final Diagnosis/Problems List Same Discharge Disposition: Home Discharge Instruct/Medications Diet: Regular Activity: Light activity Activity comment: Pelvic rest 6 weeks Follow Up/Referral: Follow up PRN are 2 weeks with primary OBGYN Medications: Resume home meds Scheduled Ferrous Sulfate (Ferrous Sulfate), 1 TAB PO DAILY, (Reported) Metformin Hydrochloride (Metformin Hcl), 500 MG PO DAILY, (Reported) Nitrofurantoin Monohydrate Mac (Macrobid), 100 MG PO BID, (Reported) Vit W/ Ferrous Fumara ( One Daily), 1 TAB PO DAILY, (Reported) Miscellaneous Medications Insulin Glargine (Basaglar Tempo Pen), 19 UNIT SC, (Reported) Discharge Statement: "Patient was advised to return to the ER or call 911 if any headaches, dizziness, shortness of breath, chest pain, abdominal pain, bleeding, fevers, or worsening of medical condition. Patient was counseled about treatment plan, medications, possible side effects, patientverbalized understanding. All questions were answered to the best of my ability. This discharge took greater then 30 minutes in planning, reviewing documentation, counseling the patient, and discussing with other team members." ASSESSMENT ASSESSMENT Assessment Same Visit Coding OBGYN Date of Service: Apr 30, 2025 Billing Provider: CHICO MEANS DO VENEER GLUE JOINTER FEEDBACK Common Visit Codes: 25014-FFB/OBS SAME DATE (HIGH) VENEER GLUE JOINTER FEEDBACK Procedure Codes: [id number] OB CARE,VAG DELIVERY CHICO MEANS DO Apr 30, 2025 05:07
[2025-04-30 07:00] VITALS: BP 107/67; PULSE 82; RESP 16; TEMP 98.5; O2SAT 97
[2025-04-30] MEDS: ACETAMINOPHEN 325 MG TAB PO PRN (08:02)
[2025-04-30 11:00] VITALS: BP 111/62; PULSE 78; RESP 16; TEMP 98.8; O2SAT 97
[2025-04-30] MEDS ORDERED: hydrALAZINE HCL 20 MG/ML VL IV ONE (13:27)
== END 2025-04-30 13:28 | disposition home or self-care (01) | DRG 807 ==
LOC: LDRP 21:14
PROVIDERS: ADMIT Obstetrics & Gynecology; ATTEND Obstetrics & Gynecology
PROC: 10E0XZZ Delivery of Products of Conception, External Approach (ICD-10-PCS; principal; 2025-04-29)
PROC: 3E033VJ Introduction of Other Hormone into Peripheral Vein, Percutaneous Approach (ICD-10-PCS; 2025-04-29)
DX: O14.94 Unspecified pre-eclampsia, complicating childbirth (principal); Z37.0 Single live birth; O24.429 Gestational diabetes mellitus in childbirth, unspecified control; O62.2 Other uterine inertia; Z3A.38 38 weeks gestation of pregnancy; O36.63X0 Maternal care for excessive fetal growth, third trimester, not applicable or unspecified
CPT/HCPCS: 36415; 59025; 59409; 62282; 80053; 80307; 81001; 81002; 82570; 82948; 82962; 83735; 84156; 84550; 85025; 85610; 85730; 86780; 86850; 86900; 86901; 94760; 94762; 96361; 96365; 96366; 96374; 96375; G0378; J2405; J2590; J7060